=== PATIENT | male | born 1980 | race Caucasian/White ===

== ENCOUNTER → 2018-03-19 | Outpatient (CLI) | payer BC ==
--- NOTE | 2018-03-19 15:33 | DIAGNOSTIC IMAGING REPORT ---
L KNEE 2 VIEWS ROUTINE CLINICAL HISTORY: M25.569 left knee pain COMPARISON: None. DISCUSSION: No fractures or dislocations are visualized. There are no erosive or destructive changes. IMPRESSION: 1. No acute fractures 2. No erosive or destructive changes are visualized Electronically signed by: Brandon Santillan M.D. 03/19/2018 3:32 PM Dictated Date/Time: 03/19/2018 3:31 PM
== END | disposition home or self-care (01) ==
LOC: C.RAD1850 15:14
PROVIDERS: ATTEND Student in an Organized Health Care Education/Training Program
DX: M25.562 Pain in left knee (principal)

== ENCOUNTER → 2018-06-06 | Day surgery (SDC) | payer BC ==
[2018-05-29 14:12] VITALS: Ht 185.4 cm; Wt 106.8 kg
[~2018-06-06] VITALS: Ht 185.4 cm; Wt 106.8 kg
[~2018-06-06] MED LIST: ATROPINE SULFATE 0.1 MG/ML 5ML SYR IV PRN; BUPIVACAINE/EPINEPHRINE 0.5% MPF 1:200,000 30 ML VIAL ONE; BUPR-267 PO; CEFAZOLIN 2000MG IV PUSH 15 ML IV SCH; DEXAMETHASONE SOD INJ 4 MG/ML VIAL ONE; DICL1GEL12 TOP; EpHEDrine SULFATE INJ 50 MG/ML AMP IV PRN; EpINEphrine HCL INJ 1 MG/ML 1ML SYRINGE ONE; FENTANYL CITRATE INJ 50 MCG/1 ML 2 ML VIAL ONE; FLUMAZENIL 0.1 MG/1 ML 10 ML VIAL IV PRN; IBUP-1428 PO; KETOROLAC TROMETHAMINE 30 MG/ML VIAL ONE; LACTATED RINGER'S 1000ML 1,000 ML IV SCH; LIDOCAINE HCL 1% 20 ML VIAL ONE; LIDOCAINE HCL 2% 2 ML VIAL (20MG/ML) ONE; MIDAZOLAM HCL 1 MG/ML 2ML VIAL ONE; MoRPHine SULFATE 2 MG/ML CARP IV PRN; MoRPHine SULFATE 4 MG/ML 1 ML CARP\\VIAL IV PRN; NALOXONE HCL 0.4 MG/1 ML VIAL/CARP IV PRN; ONDANSETRON INJ 2 MG/ML 2 ML VIAL IV PRN; ONDANSETRON INJ 2 MG/ML 2 ML VIAL ONE; OXYCODONE/ACETAMINOPHEN 5-325 TAB ONE; OXYCODONE/ACETAMINOPHEN 5-325 TAB PO PRN; PROMETHAZINE HCL INJ 12.5 MG in SODIUM CHLORIDE 0.9% 50ML 50 ML IV PRN; PROPOFOL IV EMULSION 10 MG/ML 20 ML VIAL ONE; TEMA15CA4 PO
--- NOTE | 2018-06-06 06:40 | History & Physical Bridge - SC ---
H&P Re-Evaluation Bridge Note: I have examined the patient, reviewed the History & Physical and in the interval since the performance of the History & Physical I have noted the following changes of clinical significance: No changes noted
--- NOTE | 2018-06-06 08:28 | [facility] Post Operative Brief Note ---
Immediate Operative Summary Operative Date Jun 06, 2018. Pre-Operative Diagnosis Left Knee Medial Meniscus Tear, Chondromalacia Post-Operative Diagnosis Same, Synovitis, Cyst of ACL Procedure(s) Performed 1) Left Knee Arthroscopy, Extensive debridement. 2) Chondroplasty: Patella, MFC. 3) Partial Medial Meniscectomy 4) Exam Under Anesthesia Surgeon Dr. Trujillo Boring Machine Set Up Operator Surgeon(s) Tramaine Kolb PA-C (No fellow avail) Estimated Blood Loss 2 Findings Consistent with Post-Op Diagnosis Fluids (cc crystalloids) 700 Specimens A.) Left Knee Synovial Cyst Drains None Anesthesia Type General Complication(s) none Disposition Disposition: Recovery Room / PACU (Stable)
--- NOTE | 2018-06-06 08:30 | Discharge Instructions-SurgCtr ---
Discharge Instructions Date of Service Jun 06, 2018. Visit Reason for Visit: Left Knee Meniscus Tear, Chondromalacia Discharge Discharge Diagnosis / Problem: Status post left knee arthroscopy Discharge Goals Goal(s): Decrease discomfort, Improve function, Increase independence Medications Stopped Medications Name(s): told to take no ibuprofen for 2-5 days prior Activity Recommendations Activity Limitations: per Instructions/Follow-up section May Resume Sexual Activity: when tolerated Shower/Bathe: may shower/bathe in 3 days Driving or Machine Use: Not while on Narcotics Weightbearing Status: Left weightbearing (as tolerated) Anesthesia . Post Anesthesia Instructions: If you have had General Anesthesia or IV Sedation: * Do not drive today. * Resume driving when surgeon permits. * Do not make important decisions or sign legal documents today. * Call surgeon for: 1. Temperature elevations greater than 101 degrees F. 2. Uncontrollable pain. 3. Excessive bleeding. 4. Persistent nausea and vomiting. 5. Medication intolerance (nausea, vomiting or rash). * For nausea and vomiting use only clear liquids such as: tea, soda, bouillon until nausea subsides, then gradually increase diet as tolerated. * If you have any concerns or questions, call your surgeon's office. If physician is unavailable and it is an emergency, call 911 or go to the nearest emergency room. . Instructions / Follow-Up Instructions / Follow-Up STEFFANIE Ruiz 06/18/18 @ 9:30 am. SHIRLENE 06/09/18 @ 1:30 pm. Diet Recommendations Home Diet: resume previous diet Procedures Procedures Performed: 1) Left Knee Arthroscopy, Extensive debridement. 2) Chondroplasty: Patella, MFC. 3) Partial Medial Meniscectomy 4) Exam Under Anesthesia Pending Studies Studies pending at discharge: no Medical Emergencies . Who to Call and When: Medical Emergencies: If at any time you feel your situation is an emergency, please call 911 immediately. . Non-Emergent Contact Non-Emergency issues call your: Surgeon Call Non-Emergent contact if: temperature is above 101.5, your pain is not controlled, wound has increased drainage, wound has increased redness . . "Provider Documentation" section prepared by Hema Trujillo. .
--- NOTE | 2018-06-06 08:31 | [facility] Operative Report ---
Operative Report Operative Date Jun 06, 2018. Pre-Operative Diagnosis Left Knee Medial Meniscus Tear, Chondromalacia Post-Operative Diagnosis Same, Synovitis, Cyst of ACL Procedure(s) Performed 1) Left Knee Arthroscopy, Extensive debridement. 2) Chondroplasty: Patella, MFC. 3) Partial Medial Meniscectomy 4) Exam Under Anesthesia Surgeon Dr. Trujillo Lacing Presser Surgeon(s) Tramaine Kolb PA-C (No fellow avail) Estimated Blood Loss 2 Findings The left knee was examined under anesthesia. Range of motion was 0-135. Ligamentous examination exhibited: stable Martin, posterior drawer, varus and valgus stress at 0 & 30 degrees. ARTHROSCOPIC FINDINGS: There was significant synovitis in the suprapatellar pouch and fat pad. 1) PATELLOFEMORAL JOINT: The articular cartilage of the Patella had Outerbridge type II changes centrally and along the medial patellar facet and Trochlea had the fissure in the midline and a type I bubble proximal a 3 x 3 mm over the central sulcus distal to the fissure and lateral. 2) GUTTERS: No loose bodies. There was synovitis in both gutters and there was a displaced meniscal fragment in the medial gutter. 3) MEDIAL COMPARTMENT: The articular cartilage of the femur had Outerbridge type II changes over the most medial aspect full extension to 20 of flexion and Tibia was intact, but with some softening. The medial meniscus had a complex tear from the apex to the posterior horn that was degenerative. 4) ACL/PCL: They were both visualized and probed to be intact. There appeared to be a synovial cyst at the distal insertion of the anterior cruciate ligament just over the tibial spine. 5) LATERAL COMPARTMENT: The lateral compartment was then entered in a figure-of- four position. The femoral and tibial articular cartilage was normal. The lateral meniscus had some minor fraying at the apex and the small less than 3 mL incomplete dorsal surface tear of the anterior horn. Fluids 700 Specimens A.) Left Knee Synovial Cyst Drains None Anesthesia Type General Complication(s) none Disposition Recovery Room / PACU (Stable) Indications This is a 37-year-old male who has clinical and MRI findings consistent with meniscus tear and chondromalacia. I recommended that a left knee arthroscopy be performed with meniscus repair vs debridement, possible chondroplasty versus microfracture. The patient understands the risks of surgery, which include but not limited to: bleeding, infection, re-operation, damage to nerves and arteries , continued knee pain, progression of OA, DVT, and a 2-5% risk of becoming worse after surgery. The patient understands all of these instructions and explanations, all of his questions have been satisfactorily addressed and the patient has elected to proceed. Informed consent was signed. Description of Procedure The patient was taken to the Operating Room and placed in the supine position after general anesthetic was administered. My initials and a multidisciplinary time-out were used to identify the left leg as the correct operative limb. Prior to the incision, 2 grams of intravenous Ancef was given. The left knee was then injected with 20cc of a 50:50 mix of 1% Lidocaine plain and 0.5% bupivacaine with epinephrine in a sterile fashion using the superolateral portal. The left leg was then prepped and draped in a standard sterile fashion. The anterolateral, anteromedial, and superolateral portals were injected with the 50:50 mixture noted above, for a total of 10cc, in the standard fashion. An anterolateral arthroscopic portal was established with an 11-blade. Next, the arthroscope was introduced into the knee. A diagnostic arthroscopy commenced and both the superolateral and anteromedial portals were established under direct visualization using a spinal needle followed by an 11 blade in the standard fashion. The above findings were observed during the diagnostic arthroscopy. The synovitis and anterior fat pad were debrided as they were encounter with mechanical shaver and [place]. The articular cartilage damage was debrided back to stable margins as they were encountered with mechanical shaver. The medial meniscus tear was evaluated and found to be irreparable and was debrided back to stable margin with hand punches, and mechanical shaver. The synovial cyst along the distal insertion of the anterior cruciate ligament was biopsied with hand punch and further debrided with mechanical shaver and cut. The specimen was obtained through the patient's prior history to PVNS in the opposite knee. The knee was copiously irrigated. The arthroscopic instruments were then removed. The portals were closed with 3-0 Prolene in a standard fashion. The wound was dressed with Xeroform gauze, sterile gauze, ABDs, sterile Webril, and a foot to thigh Brown bandage. The patient was then transferred to the Recovery Room in stable condition. The sponge and needle counts were correct. Post-op Instructions: The patient will be WBAT. The patient may remove the operative dressing on Post -Op Day #2 and apply Band-Aids to the wounds. The patient may shower in 72 hours and is to wear the KATARINA for 2 weeks on the operative limb. The patient is to use the pain medicine as needed and take the ASA for 2 weeks. The patient was also given a handout for home quad strengthening and seated self-assisted ROM exercises, which they may begin tomorrow. The patient was given a prescription for PT and is scheduled for an appointment later this week. The patient is to follow up in 10-15 days. I attest to the content of the Intraoperative Record and any orders documented therein. Any exceptions are noted below.
[2018-06-06] MEDS: HYDROmorphone INJ 1 MG/ML SYR IV PRN ×2 (08:47→08:53)
--- NOTE | 2018-06-06 09:13 | Anesthesia Progress Nt - [facility] ---
Anesthesia Post Op Note Date & Time Jun 06, 2018 at 09:12 Vital Signs Pain Intensity: 7 Vital Signs Past 12 Hours Date Time Temp Pulse Resp B/P (MAP) Pulse Ox O2 Delivery O2 Flow Rate FiO2 06/06/18 09:08 84 18 96 06/06/18 09:08 85 18 06/06/18 09:06 36.7 94 Room Air 06/06/18 09:06 143/94 06/06/18 09:03 82 23 06/06/18 09:03 84 23 97 06/06/18 09:02 82 19 06/06/18 09:02 83 19 98 06/06/18 09:01 138/91 06/06/18 08:59 148/93 06/06/18 08:57 80 16 06/06/18 08:57 80 16 94 06/06/18 08:56 79/64 06/06/18 08:52 66 4 97 06/06/18 08:52 66 4 06/06/18 08:51 148/92 06/06/18 08:47 79 8 06/06/18 08:47 80 8 98 06/06/18 08:46 80 9 146/81 98 06/06/18 08:46 78 9 06/06/18 08:41 75 13 06/06/18 08:41 74 13 143/99 96 06/06/18 08:38 153/90 06/06/18 08:38 36.7 87 16 153/90 96 Mask 7 06/06/18 06:31 36.9 73 18 153/96 (115) 96 Room Air Notes Mental Status: alert / awake / arousable, participated in evaluation Pt Amnestic to Procedure: Yes Nausea / Vomiting: adequately controlled Pain: adequately controlled Airway Patency, RR, SpO2: stable & adequate BP & HR: stable & adequate Hydration State: stable & adequate Anesthetic Complications: no major complications apparent
[2018-06-06 09:43] VITALS: BP 143/94; PULSE 76; O2SAT 97
--- NOTE | 2018-06-06 12:02 | [facility] Operative Report ---
Operative Report Operative Date Jun 06, 2018. Pre-Operative Diagnosis Left Knee Medial Meniscus Tear, Chondromalacia Post-Operative Diagnosis Same, Synovitis, Cyst of ACL Procedure(s) Performed 1) Left Knee Arthroscopy, Extensive debridement. 2) Chondroplasty: Patella, MFC. 3) Partial Medial Meniscectomy 4) Exam Under Anesthesia Surgeon Dr. Trujillo Material Handling Crew Supervisor Surgeon(s) Tramaine Kolb PA-C (No fellow avail) Estimated Blood Loss [address] Trujillo operative report Fluids (cc crystalloids) 700 Specimens A.) Left Knee Synovial Cyst Complication(s) None Disposition Recovery Room / PACU Indications Left knee pain. Failed conservative treatment. MRI with medial meniscal tear and chondromalacia. Description of Procedure See Dr Trujillo operative report. I was surgical services assistant during entire case. Assisted with scope handling and wound closure. I attest to the content of the Intraoperative Record and any orders documented therein. Any exceptions are noted below.
== END | disposition home or self-care (01) ==
LOC: X.SURG 06:16
PROVIDERS: ATTEND Orthopaedic Surgery Sports Medicine
DX: S83.242A Other tear of medial meniscus, current injury, left knee, initial encounter (principal); X58.XXXA Exposure to other specified factors, initial encounter; M22.42 Chondromalacia patellae, left knee; F32.9 Major depressive disorder, single episode, unspecified; Z87.891 Personal history of nicotine dependence